=== PATIENT | female | born 1995 | race Caucasian/White ===

== ENCOUNTER → 2016-08-23 07:00 | Day surgery (SDC) | payer BC ==
[~2016-08-23 07:00] MED LIST: Buffered Lidocaine 1% SYRIN* 3 ML/SYR SYRINGE INTRADERM ONE; Bupivacaine 0.5% SDV PF* 30 ML VIAL ONE; Dexamethasone IV* 4 MG/ML 1 ML (4 MG) ONE; Famotidine IV* 10 MG/ML 2 ML (20 mg) IV ONE; Famotidine IV* 10 MG/ML 2 ML (20 mg) ONE; KETAMINE HCL* 50 MG/ML 10 ML VIAL ONE; Ketorolac INJ* 30 MG/ML 1 ML VIAL ONE; Lidocaine 2% PF* 10 ML AMP ONE; Lidocaine 2% PF* 5 ML VIAL ONE; Midazolam* 1 MG/ML 5 ML VIAL (5 MG) ONE; Morphine INJ* 2 MG/ML 1 ML SYRINGE IV PRN; Ondansetron INJ* 2 MG/ML VIAL ONE; PROCHLORPERAZINE INJ 5 MG/ML 2 ML VIAL IV PRN; Propofol* 10 MG/ML 20 ML BTL IV PUSH ONE; ceFAZolin 2 GM PREMIX(*) 2 GM/50 ML BAG IVPB ONE; fentaNYL* 50 MCG/ML 2 ML VIAL (100 MCG VIAL) IV PRN; fentaNYL* 50 MCG/ML 2 ML VIAL (100 MCG VIAL) ONE; oxyCODONE TAB* 5 MG TAB ONE; oxyCODONE/Acetamin 5/325 MG* TAB PO PRN
[2016-08-23 07:57] LABS: Manual Entry Verification DOM0004; UR Preg Internal Control QC Line Present
[2016-08-23 12:06] VITALS: BP 116/76
--- NOTE | 2016-08-23 15:38 | RAD ---
INDICATION: Removal of hardware, right ankle, T 84.84XA COMPARISONS: July 30, 2016 TECHNIQUE: Fluoroscopy was provided for a surgical procedure. Total fluoroscopy time is: 11 seconds FINDINGS: Spot images demonstrate removal of fixation hardware of the distal tibia. A small amount of residual is noted. IMPRESSION: FLUOROSCOPY WAS PROVIDED FOR A SURGICAL PROCEDURE CPT II Codes: 6045F
--- NOTE | 2016-08-24 09:24 | OP ---
OPERATIVE REPORT: DATE OF OPERATION: 08/23/16 DATE OF : 89 ATTENDING SURGEON: Lopez Humphries MD BIOFUELS MANAGER: No dental ceramist assistant noted. PRE-OP DIAGNOSIS: Painful hardware, right anterolateral ankle. POST-OP DIAGNOSIS: Painful hardware, right anterolateral ankle. OPERATIVE PROCEDURE: Removal of screw, right distal tibia. DESCRIPTION OF PROCEDURE: The patient was taken to the operating room, where a 3- cm incision was m marychuy over the anterolateral ankle. With the C-arm, we identified the end of the 4-0 cannulated screw . There were some bone overgrowth, so this was carefully removed with an osteotome. We then placed the screwdriver into the head of the screw and twisting it, we broke off the head of the 4-0 screw. I then used the screw removal kit and over-drilled the shaft of the 4-0 under C-arm guidance. At on e point, the cannulated overdrilling the screw bit, captured the shaft, but broke the shaft at the j unction with the threads and actually sheared off a portion of the end of the reverse cutting drill bit. C-arm was then used to verify that. All the screws removed except for the threaded portion an d a small piece broken off from the drill bit tip. I used the small curette up the canal to try to retrieve this broken piece of the drill, but was unable to. Nevertheless, the distal and lateral portion of the screw had been completely removed and should jm ve the problems experienced by the patient. We irrigated thoroughly closing with Vicryl and nylon s utures and a compression dressing applied. [id number]/[facility] #: [id number]
== END | disposition home or self-care (01) ==
LOC: OR 07:00
PROVIDERS: ATTEND Orthopaedic Surgery
DX: T84.84XA Pain due to internal orthopedic prosthetic devices, implants and grafts, initial encounter (principal); Y83.8 Other surgical procedures as the cause of abnormal reaction of the patient, or of later complication, without mention of misadventure at the time of the procedure
CPT/HCPCS: 76000; 81025; 88300; A9270-GY; J0690; J1100; J1885; J2001; J2250; J2405; J2704; J3010

== ENCOUNTER 2017-05-09 09:40 | Emergency (ER) | payer OTHER ==
[2017-05-09] MEDS ORDERED: Acetaminophen TAB* 325 MG PO ONE (12:53)
[2017-05-09] MEDS ORDERED: Clindamycin CAP* 150 MG PO ONE (13:44)
--- NOTE | 2017-05-09 14:04 | ED ---
Throat Pain/Nasal Congestion - HPI Summary HPI Summary: 24 week pt here w/ Rt lower cheek swelling which started last night. Has a wisdom tooth coming in here and saw dentist today (Woody Hull) - he believes it's infected and she admits she's tasted drainage. Denies fever, chills, dysphagia, N/V/D, SOMERS, neck stiffness. Has not tried anything yet for discomfort. She reports dentist told her to come here to ED for IV anbx and I& D. She has had movement prior and throughout facial swelling/infection. Denies ab/pelvic pain, vaginal d/c, back pain. - History of Current Complaint Chief Complaint: EDDentalPain Time Seen by Provider: 05/09/17 12:42 Hx Obtained From: Patient, Family/Type Bar And Segment Assembler - family - Allergies/Home Medications Allergies/Adverse Reactions: Allergies Allergy/AdvReac Type Severity Reaction Status Date / Time No Known Allergies Allergy Verified 05/09/17 10:14 Home Medications: Home Medications Vitamin [Calna] 1 tab PO DAILY 05/09/17 [History Confirmed 05/09/17] Ranitidine HCl [Zantac 75] 75 mg PO DAILY 05/09/17 [History Confirmed 05/09/17] PMH/Surg Hx/FS Hx/Imm Hx Previously Healthy: Yes Endocrine/Hematology History: Denies: Hx Anticoagulant Therapy GI History: Reports: Other GI Disorders - FREQUENT INDIGESTION, TAKES TUMS PRN Musculoskeletal History: Reports: Other Musculoskeletal History - FX GROWTH PLATE RIGHT ANKLE A CHILD Sensory History: Reports: Hx Contacts or Glasses - BOTH, WILL WEAR GLASSES DAY OF SURGERY Opthamlomology History: Reports: Hx Contacts or Glasses - BOTH, WILL WEAR GLASSES DAY OF SURGERY - Surgical History Surgery Procedure, Year, and Place: RIGHT ANKLE SURGERY - 2008 - [facility] – [place]. SKIN GRAFT ON RIGHT LEG A CHILD - [place] Hx Anesthesia Reactions: No Infectious Disease History: No Infectious Disease History: Denies: Traveled Outside the [place] in Last 30 Days - Family History Known Family History: Positive: None - Social History Lives: With Family Alcohol Use: None Hx Substance Use: No Substance Use Type: Reports: None Hx Tobacco Use: No Smoking Status (MU): Never Smoked Tobacco Review of Systems Constitutional: Negative Negative: Fever, Chills, Fatigue Eyes: Negative Negative: Drainage, Erythema Positive: Dental Pain. Negative: Sore Throat, Ear Ache, Nasal Discharge Cardiovascular: Negative Negative: Palpitations, Chest Pain Respiratory: Negative Negative: Shortness Of Breath, Cough Gastrointestinal: Negative Negative: Abdominal Pain, Vomiting, Diarrhea, Nausea Genitourinary: Negative Musculoskeletal: Negative Skin: Negative Neurological: Negative Negative: Headache, Weakness, Paresthesia, Numbness, Syncope Psychological: Normal All Other Systems Reviewed And Are Negative: Yes Physical Exam Triage Information Reviewed: Yes Vital Signs On Initial Exam: Initial Vitals Temp Pulse Resp BP Pulse Ox 98.3 F 97 20 127/71 99 05/09/17 10:11 05/09/17 10:11 05/09/17 10:11 05/09/17 10:11 05/09/17 10:11 Vital Signs Reviewed: Yes Appearance: Positive: Well-Appearing, No Pain Distress, Well-Nourished Skin: Positive: Warm, Dry - no erythema or lesions over Rt cheek - mild edema focal in lower Rt cheek Head/Face: Positive: Normal Head/Face Inspection - sinuses NTTP Eyes: Positive: Normal, EOMI, Conjunctiva Clear. Negative: Conjunctiva Inflammed, Discharge ENT: Positive: Normal ENT inspection, Hearing grossly normal, Pharynx normal, TMs normal, Uvula midline. Negative: Pharyngeal erythema, Nasal congestion, Nasal drainage Dental: Positive: Other - Rt inferior wisdom tooth appears to be erupting through tissue - no salvador drainage observed but gingiva is w/ mild erythema and buccal mucosa w/ mild edema - no focal bogginess within gingiva Neck: Positive: Supple, Nontender, No Lymphadenopathy Respiratory/Lung Sounds: Positive: Clear to Auscultation, Breath Sounds Present. Negative: Stridor, Tracheal Deviation, Wheezes Cardiovascular: Positive: Normal, RRR, S1, S2 Abdomen Description: Positive: Nontender, Soft Bowel Sounds: Positive: Present Musculoskeletal: Positive: Normal, Strength/ROM Intact Neurological: Positive: Normal, Sensory/Motor Intact, Alert, Oriented to Person Place, Time, CN Intact II-III Psychiatric: Positive: Normal - [place] Coma Scale Coma Scale Total: 15 Diagnostics - Vital Signs Vital Signs Temp Pulse Resp BP Pulse Ox 05/09/17 10:11 98.3 F 97 20 127/71 99 - Laboratory Lab Statement: Any lab studies that have been ordered have been reviewed, and results considered in the medical decision making process. EENT Course/Dx - Course Course Of Treatment: 24 week pt here w/ Rt lower dental abscess. Denies fever, chills, N/V/D, neck pain/stiffness or headache. D/t and early onset, it was decided an I&D would not be appropriate at this time as pt reports drainage and w/o focal area to open, may risk puhsing a focal infection into a systemic infection which she does not appear to have at this time. Pt was started on PO anbx, mouthwash anbx, and encouraged to try heat packs with acetaminophen for pain. Encouraged close f/u w/ dentist and reviewed danger s/ sx of when to return to ED. NOTE: HR 153 - WNL. - Diagnoses Provider Diagnoses: Dental infection Discharge - Discharge Plan Condition: Stable Disposition: HOME Prescriptions: Chlorhexidine MOUTHWASH 0.12%* [Peridex Mouth Wash 0.12%*] 15 ml .SEE ORDER BID #1 bottle Clindamycin HCl [Clindamycin 150 MG CAP*] 450 mg PO TID #30 cap Patient Education Materials: (ED), Dental Abscess (ED) Forms: *Work Release Referrals: Shaggy MICHAEL,Zackery Martinez [Primary Care Provider] - Additional Instructions: Rest and stay hydrated You may apply heat packs and use salt water rinses to help abscess to drain You may take acetaminophen 650mg every 6 hours for pain as well Rinse with chlorhexadine 2 x day for 10 days Complete clindamycin as directed Follow-up with dentist if worsens *If you develop fever, chills, nausea, vomiting, difficulty breathing or swallowing, headache or neck stiffness, return to ED
[2017-05-09 14:11] VITALS: BP 116/61
== END 2017-05-09 14:10 | disposition home or self-care (01) ==
LOC: ED 09:40
DX: K04.7 Periapical abscess without sinus (principal); K08.89 Other specified disorders of teeth and supporting structures
CPT/HCPCS: 99282; A9270-GY

== ENCOUNTER 2017-09-02 07:24 | Inpatient (IN) | payer OTHER ==
--- NOTE | 2017-09-02 08:19 | HP ---
General Information - General Information Maternal Age: 22 Grav: 1 Para: 0 SAB: 0 IEA: 0 Estimated Due Date: 08/28/17 Determined By: Early Ultrasound Maternal Blood Type and Rh: O Positive - Results this Serology/RPR Result: Non-Reactive Rubella Result: Immune HBsAg Result: Negative HIV Result: Negative GBS Culture Result: Negative Past Medical History Delivery History: See Records Pertinent Past Medical History: Non-Contributory Pertinent Family History: See Records - Antepartal Records Antepartal Records: Reviewed, Uncomplicated Review of Systems Constitutional: Comfortable Gastrointestinal: No Nausea/Vomiting Genitourinary: No Leaking Fluid Musculoskeletal: No Complaint Neurological: No Headache Movement: Normal Exam Allergies/Adverse Reactions: Allergies No Known Allergies Allergy (Verified 09/02/17 07:56) - Exam Abdomen: No Upper Quadrant Pain Breast: Breast Exam Deferred CVA: No CVA Tenderness Extremities: Edema Heart: Normal Rhythm/Heart Sounds HEENT: No Significant Findings Lungs: Clear Bilaterally Rectal: Rectal Exam Deferred Reflexes: DTR 2+ Thyroid: No Thyromegaly - Cervical Exam 2 cm/80%/-2 - Abdominal Exam Abdomen Exam: Non-Tender, Fundal Height Consistent with Dates EFM Findings - External Monitor Findings Baseline Heart Rate: 150 External Monitor Findings: Accelerations Present, Variability Moderate Contractions: None Assessment/Plan - Reason for Visit Reason for Visit: post term - Obstetrical Risk Factors Obstetrical Risk Factors: Post-Dates - Plan Plan: Induction
[2017-09-02] MEDS ORDERED: Oxytocin in LR* 20 UNITS/1,000 ML BAG IVPB ONE (08:29)
[2017-09-02] MEDS ORDERED: Oxytocin in LR* 20 UNITS/1,000 ML BAG IVPB SCH ×2 (09:00→23:00)
[2017-09-02 09:12] LABS: ABS Basophils 0 10^3/ul (0-0.2); ABS Eosinophils 0.1 10^3/ul (0-0.6); ABS Lymphocytes 1.6 10^3/ul (1.0-4.8); ABS Monocytes 0.7 10^3/ul (0-0.8); ABS Neutrophils 10.1 10^3/ul (1.5-7.7); ABS Nucleated RBC 0 10^3/ul; Eosinophil % 0.5 % (0-6); Hematocrit 35 % (35-47); Hemoglobin 11.6 g/dl (12.0-16.0); Lymphocyte % 12.9 % (25-47); Mean Corpuscular HGB Conc 33 g/dl (31-36); Mean Corpuscular Hemoglobin 28 pg (27-31); Mean Corpuscular Volume 84 fL (80-97); Mean Platelet Volume 8.8 um3 (7.4-10.4); Nucleated Red Blood Cells % 0; Platelet Count 292 10^3/ul (150-450); Red Blood Count 4.22 10^6/ul (4.0-5.4); Red Cell Distribution Width 15 % (10.5-15); White Blood Count 12.4 10^3/ul (3.5-10.8)
[2017-09-02] MEDS ORDERED: OBEPIDURAL* 250 ML EPIDURAL ONE (18:04)
[2017-09-02] MEDS ORDERED: EPHEDrine (Pressors)* 50 MG/ML VIAL IV PUSH PRN ×2 (18:57)
[2017-09-02] MEDS ORDERED: Famotidine TAB* 20 MG PO PRN (18:57)
[2017-09-02] MEDS ORDERED: Sodium Citrate/Citric Acid* 15 ML UDC PO PRN (18:57)
[2017-09-02] MEDS ORDERED: Phenylephrine IV* 40 MCG/ML 10 ML SYRINGE IV PUSH PRN ×2 (18:57)
[2017-09-02] MEDS ORDERED: OBEPIDURAL* 250 ML EPIDURAL SCH (19:00)
[2017-09-02] MEDS ORDERED: Sodium Citrate/Citric Acid* 15 ML UDC PO ONE (21:06)
[2017-09-02] MEDS ORDERED: ceFOXitin 2 GM IVPREMIX* 2 GM/50 ML BAG IVPB ONE (21:06)
[2017-09-02] MEDS ORDERED: Morphine PF AMP (0.5MG/ML)* 5 MG/10 ML AMP ONE (21:35)
[2017-09-02] MEDS ORDERED: OXYTOCIN* 10 UNITS/ML 1 ML VIAL ONE (22:10)
[2017-09-02] MEDS ORDERED: Witch Hazel PAD* JAR TOPICAL PRN (22:48)
[2017-09-02] MEDS ORDERED: Dibucaine 1% 28.35 GM TUBE PR PRN (22:48)
[2017-09-02] MEDS ORDERED: Glycerin ADULT SUPP PR PRN (22:48)
[2017-09-02] MEDS ORDERED: Acetaminophen TAB* 325 MG PO PRN (22:48)
[2017-09-02] MEDS ORDERED: Naloxone* 0.4 MG/ML 1 ML VIAL IV PRN ×2 (22:50)
[2017-09-02] MEDS ORDERED: Nalbuphine* 20 MG/ML 1 ML VIAL IV PRN ×2 (22:50)
[2017-09-02] MEDS ORDERED: HYDROmorphone INJ* 1 MG/ML CARPUJECT SYRINGE IV PRN (22:50)
[2017-09-02] MEDS ORDERED: oxyCODONE/Acetamin 5/325 MG* TAB PO PRN ×2 (22:50)
[2017-09-02] MEDS ORDERED: Ondansetron INJ* 2 MG/ML VIAL IV PRN (22:50)
[2017-09-02] MEDS ORDERED: fentaNYL* 50 MCG/ML 2 ML VIAL (100 MCG VIAL) IV PRN (22:50)
[2017-09-02] MEDS ORDERED: Ketorolac INJ* 30 MG/ML 1 ML VIAL IV PRN (22:50)
[2017-09-02] MEDS ORDERED: Ketorolac INJ* 30 MG/ML 1 ML VIAL ONE (23:47)
--- NOTE | 2017-09-03 03:48 | OP ---
OPERATIVE REPORT: DATE OF OPERATION: 09/02/17 DATE OF : 89 SURGEON: Mathieu Brooke MD BEREAVEMENT COUNSELOR: Mikaela Smallwood CNM ANESTHESIA: Epidural. PRE-OP DIAGNOSIS: Arrest of dilation. POST-OP DIAGNOSIS: Arrest of dilation. OPERATIVE PROCEDURE: Low transverse section. ESTIMATED BLOOD LOSS: 600 cc. FINDINGS: This is a 22-year-old 1, para 0, who presented at 41 weeks for induction of labor for post dates. She was initially started at approximately 7:30 a.m. with artificial rupture of memb ranes and Pitocin. She progressed from 2 cm up to 4 cm by 4 p.m. Received an epidural at approximat ayla 6 p.m. Did not progress beyond 4 cm by 9 p.m. At that time, risks, benefits, alternatives, mauro cations of section were discussed with the patient and the patient agreed. At the time of julio lopez, she had a viable male, Apgars 8 and 9, weight was 8 pounds and 9 ounces. Normal-appearing u terus, fallopian tubes, and ovaries. DESCRIPTION OF PROCEDURE: The patient identified, procedure identified as a low transverse section. The patient was taken to the operating room and prepped and draped in the usual fashion in the left lateral recumbent position under epidural anesthesia. A Pfannenstiel incision was made in t he abdomen and carried down through fat, fascia, and peritoneum. The Prasad retractor was placed. A transverse incision was made in the lower uterine segment and extended laterally using a bandage scis sors. The above was delivered through the incision with ease. There was nuchal cord x1, whic h was looped off. The rest of the infant was delivered. The cord was doubly clamped and cut and the was handed to the awaiting professor of special education. Cord blood was obtained. Placenta delivered sponta neously. The uterine incision was closed using 0 Polysorb in a running fashion. A second layer was u sed to imbricate the first layer. Good hemostasis was verified in the intraperitoneal cavity. The p eritoneum was then closed using 3-0 Polysorb in a running fashion. Good hemostasis achieved in the s ubrectus layers. The fascia was closed using 0 Polysorb in a running fashion. Hemostasis achieved i n the subcu. Copious irrigation was utilized and suctioned out. The deep space in the subcu was clos ed using 3-0 Vicryl in a simple fashion and the skin was closed with 4-0 Monocryl in a subcuticular f ashion. Mastisol and Steris were applied. All sponge and instrument counts were correct. The patie nt returned to the recovery room in stable condition. [id number]/[facility] #: [id number]
[2017-09-03 06:11] LABS: ABS Basophils 0.1 10^3/ul (0-0.2); ABS Eosinophils 0.1 10^3/ul (0-0.6); ABS Lymphocytes 1.8 10^3/ul (1.0-4.8); ABS Monocytes 1.1 10^3/ul (0-0.8); ABS Neutrophils 11.2 10^3/ul (1.5-7.7); ABS Nucleated RBC 0 10^3/ul; Eosinophil % 0.4 % (0-6); Hematocrit 31 % (35-47); Hemoglobin 10.2 g/dl (12.0-16.0); Lymphocyte % 12.4 % (25-47); Mean Corpuscular HGB Conc 34 g/dl (31-36); Mean Corpuscular Hemoglobin 28 pg (27-31); Mean Corpuscular Volume 85 fL (80-97); Mean Platelet Volume 8.7 um3 (7.4-10.4); Nucleated Red Blood Cells % 0; Platelet Count 233 10^3/ul (150-450); Red Blood Count 3.62 10^6/ul (4.0-5.4); Red Cell Distribution Width 15 % (10.5-15); White Blood Count 14.2 10^3/ul (3.5-10.8)
[2017-09-03] MEDS: Docusate CAP* 100 MG PO SCH ×3 (08:29→21:20)
[2017-09-03] MEDS: Simethicone TAB* 80 MG TAB.CHEW PO SCH ×4 (08:29→21:20)
[2017-09-03] MEDS ORDERED: Ferrous Gluconate TAB* 324 MG TAB PO SCH (09:00)
[2017-09-03] MEDS: Ibuprofen TAB* 600 MG PO PRN ×2 (13:48→21:20)
[2017-09-03] MEDS ORDERED: oxyCODONE/Acetamin 5/325 MG* TAB PO PRN ×2 (14:42)
[2017-09-03] MEDS ORDERED: Zolpidem TAB* 5 MG PO PRN (21:40)
[2017-09-04] MEDS: Ibuprofen TAB* 600 MG PO PRN ×3 (08:02→20:03)
[2017-09-04] MEDS: Docusate CAP* 100 MG PO SCH ×3 (08:56→20:03)
[2017-09-04] MEDS: Simethicone TAB* 80 MG TAB.CHEW PO SCH ×4 (08:57→20:04)
[2017-09-05] MEDS: Ibuprofen TAB* 600 MG PO PRN ×2 (04:07→11:07)
[2017-09-05 07:41] VITALS: BP 135/64
[2017-09-05] MEDS: Docusate CAP* 100 MG PO SCH (08:42)
[2017-09-05] MEDS: Simethicone TAB* 80 MG TAB.CHEW PO SCH (08:42)
== END 2017-09-05 11:52 | disposition home or self-care (01) | DRG 540 ==
LOC: MCHOBOUT 07:24 → MCHOB 08:08
PROVIDERS: ADMIT Obstetrics & Gynecology; ATTEND Obstetrics & Gynecology
PROC: 3E033VJ Introduction of Other Hormone into Peripheral Vein, Percutaneous Approach (ICD-10-PCS; 2017-09-02)
PROC: 10907ZC Drainage of Amniotic Fluid, Therapeutic from Products of Conception, Via Natural or Artificial Opening (ICD-10-PCS; 2017-09-02)
PROC: 10D00Z1 Extraction of Products of Conception, Low, Open Approach (ICD-10-PCS; principal; 2017-09-02 21:44)
DX: O62.0 Primary inadequate contractions (principal); O48.0 Post-term pregnancy; O69.81X0 Labor and delivery complicated by cord around neck, without compression, not applicable or unspecified; Z3A.41 41 weeks gestation of pregnancy; Z37.0 Single live birth
CPT/HCPCS: 36415; 85025; 86850; 86900; 86901; A9270-GY; J0694; J1885; J2300; J2590

== ENCOUNTER 2018-02-14 19:23 | Emergency (ER) | payer OTHER ==
--- NOTE | 2018-02-14 21:03 | ED ---
GI/ HPI - HPI Summary HPI Summary: 22 year old female lmp december 19 presents with abdominal pain only when she is walking. She states that it located on both sides of her lower abdominal. is it ache in nature. She denies any nausea or vomiting. No urinary symptoms. No flank pain. No diarrhea nor constipation or abnormal vaginal discharge. No vaginal bleeding. She states never had this before. States she has no pain at baseline is only when she walks. She has not followed up with her OB yet. She states that she only had an at home test that was positive. - History of Current Complaint Chief Complaint: EDOBProblems Time Seen by Provider: 02/14/18 20:46 Stated Complaint: 8 WKS PREG/ABD PAIN Pain Intensity: 0 - Allergy/Home Medications Allergies/Adverse Reactions: Allergies Allergy/AdvReac Type Severity Reaction Status Date / Time No Known Allergies Allergy Verified 02/14/18 19:30 Home Medications: Home Medications Levocetirizine Dihydrochloride [Xyzal Allergy 24Hr] 5 mg PO BID 02/14/18 [ History Confirmed 02/14/18] PMH/Surg Hx/FS Hx/Imm Hx Endocrine/Hematology History: Denies: Hx Anticoagulant Therapy Respiratory History: Denies: Hx Asthma GI History: Reports: Other GI Disorders - FREQUENT INDIGESTION, TAKES TUMS PRN Musculoskeletal History: Reports: Other Musculoskeletal History - FX GROWTH PLATE RIGHT ANKLE A CHILD Sensory History: Reports: Hx Contacts or Glasses - BOTH, WILL WEAR GLASSES DAY OF SURGERY Opthamlomology History: Reports: Hx Contacts or Glasses - BOTH, WILL WEAR GLASSES DAY OF SURGERY - Surgical History Surgery Procedure, Year, and Place: RIGHT ANKLE SURGERY - 2008 - [facility] – [place]. SKIN GRAFT ON RIGHT LEG A CHILD - [place] Hx Anesthesia Reactions: No Infectious Disease History: No Infectious Disease History: Denies: Traveled Outside the US in Last 30 Days - Family History Known Family History: Positive: None - Social History Alcohol Use: None Hx Substance Use: No Substance Use Type: Reports: None Hx Tobacco Use: No Smoking Status (MU): Never Smoked Tobacco Have You Smoked in the Last Year: No Review of Systems Negative: Fever Negative: Chest Pain Negative: Shortness Of Breath Positive: Abdominal Pain All Other Systems Reviewed And Are Negative: Yes Physical Exam Triage Information Reviewed: Yes Vital Signs On Initial Exam: Initial Vitals Temp Pulse Resp BP Pulse Ox 98.3 F 92 15 134/68 100 02/14/18 19:27 02/14/18 19:27 02/14/18 19:27 02/14/18 19:27 02/14/18 19:27 Vital Signs Reviewed: Yes Appearance: Positive: Well-Appearing Skin: Positive: Warm, Dry Head/Face: Positive: Normal Head/Face Inspection Eyes: Positive: Normal, Conjunctiva Clear ENT: Positive: Pharynx normal Respiratory/Lung Sounds: Positive: Clear to Auscultation, Breath Sounds Present Cardiovascular: Positive: Normal, RRR Abdomen Description: Positive: Nontender, Soft Bowel Sounds: Positive: Present Musculoskeletal: Positive: Normal Neurological: Positive: Normal Psychiatric: Positive: Normal Diagnostics - Vital Signs Vital Signs Temp Pulse Resp BP Pulse Ox 02/14/18 19:27 98.3 F 92 15 134/68 100 - Laboratory Lab Statement: Any lab studies that have been ordered have been reviewed, and results considered in the medical decision making process. GIGU Course/Dx - Course Course Of Treatment: 18-year-old female presents with head injury today. She states that she fell off a high bar doing gymnastics. She fell and landed on her head. She denies any loss consciousness. She admits to amnesia after the event. States that after the fall today she is having difficulty recalling events of the day. She admits to photophobia. She admits to dizziness. She admits to nausea but no vomiting. She denies any neck pain. She denies any other injury. She states she has a pretty severe headache. She has a history of a concussion a year ago. She denies any history of migraines. On exam nontender abdomen. hcg [id number]. discussed that should follow up with ob as scheduled. likely round ligament pain. told if develops persistent abd pain or vaginal bleeding to return. patient understand and agrees with plan. - Diagnoses Differential Diagnoses - Female: , STD, Urinary Tract Infection Provider Diagnoses: Discharge - Sign-Out/Discharge Documenting (check all that apply): Patient Departure - Discharge Plan Condition: Good Disposition: HOME Patient Education Materials: (ED) Referrals: Shaggy MICHAEL,Zackery Martinez [Primary Care Provider] - Anayeli Bar MD [Medical Doctor] - Additional Instructions: follow up with ob Take tyenlol every 6 hours as needed for pain Return to ED if develop any new or worsening symptoms - Billing Disposition and Condition Condition: GOOD Disposition: Home
[2018-02-14 21:48] LABS: Urine Appearance Clear; Urine Blood Negative (Negative); Urine Color Yellow; Urine Ketones Negative (Negative); Urine Protein Negative (Negative); Urine Red Blood Cell Trace(0-2/hpf) (Absent); Urine Specific Gravity 1.012 (1.010-1.030); Urine Urobilinogen Negative (Negative); Urine White Blood Cell Trace(0-5/hpf) (Absent)
[2018-02-14 22:22] VITALS: BP 132/62
== END 2018-02-14 22:21 | disposition home or self-care (01) ==
LOC: ED 19:23
DX: R10.9 Unspecified abdominal pain (principal); Z34.91 Encounter for supervision of normal pregnancy, unspecified, first trimester; Z3A.08 8 weeks gestation of pregnancy
CPT/HCPCS: 36415; 81003; 81015; 84702; 87086; 87491; 87591; 99282

== ENCOUNTER 2018-10-02 09:06 | Inpatient (IN) | payer OTHER, MEDICAID ==
[~2018-10-02 09:06] MED LIST changes: +Buffered Lidocaine 1% SYRIN* 1 ML/SYRINGE INTRADERM ONE; -Buffered Lidocaine 1% SYRIN* 3 ML/SYR SYRINGE INTRADERM ONE; -Bupivacaine 0.5% SDV PF* 30 ML VIAL ONE; -Dexamethasone IV* 4 MG/ML 1 ML (4 MG) ONE; -Famotidine IV* 10 MG/ML 2 ML (20 mg) IV ONE; -Famotidine IV* 10 MG/ML 2 ML (20 mg) ONE; -KETAMINE HCL* 50 MG/ML 10 ML VIAL ONE; -Ketorolac INJ* 30 MG/ML 1 ML VIAL ONE; +Lactated Ringers 1000 ML Bag* 1,000 ML IV SCH; -Lidocaine 2% PF* 10 ML AMP ONE; -Lidocaine 2% PF* 5 ML VIAL ONE; -Midazolam* 1 MG/ML 5 ML VIAL (5 MG) ONE; -Morphine INJ* 2 MG/ML 1 ML SYRINGE IV PRN; -Ondansetron INJ* 2 MG/ML VIAL ONE; -PROCHLORPERAZINE INJ 5 MG/ML 2 ML VIAL IV PRN; -Propofol* 10 MG/ML 20 ML BTL IV PUSH ONE; +Sodium Citrate/Citric Acid* 15 ML UDC PO ONE; -ceFAZolin 2 GM PREMIX(*) 2 GM/50 ML BAG IVPB ONE; -fentaNYL* 50 MCG/ML 2 ML VIAL (100 MCG VIAL) IV PRN; -fentaNYL* 50 MCG/ML 2 ML VIAL (100 MCG VIAL) ONE; -oxyCODONE TAB* 5 MG TAB ONE
[2018-10-02] MEDS ORDERED: ceFOXitin 2 GM IVPREMIX* 2 GM/50 ML BAG ONE (10:22)
[2018-10-02] MEDS ORDERED: Morphine PF AMP (0.5MG/ML)* 5 MG/10 ML AMP ONE (11:10)
[2018-10-02] MEDS ORDERED: Dexamethasone IV* 4 MG/ML 1 ML (4 MG) ONE (11:11)
[2018-10-02] MEDS ORDERED: EPHEDrine (Pressors)* 50 MG/ML VIAL ONE (11:11)
[2018-10-02] MEDS ORDERED: OXYTOCIN* 10 UNITS/ML 1 ML VIAL ONE (11:11)
[2018-10-02] MEDS ORDERED: Ondansetron INJ* 2 MG/ML VIAL ONE (11:11)
[2018-10-02] MEDS ORDERED: Phenylephrine 40 MCG/ML SYRINGE ONE (11:49)
[2018-10-02] MEDS ORDERED: oxyCODONE TAB* 5 MG TAB PO PRN ×2 (12:02→16:00)
[2018-10-02] MEDS ORDERED: PROCHLORPERAZINE INJ 5 MG/ML 2 ML VIAL IV PRN (12:02)
[2018-10-02] MEDS ORDERED: Naloxone* 0.4 MG/ML 1 ML VIAL IV PRN ×2 (12:02→12:04)
[2018-10-02] MEDS ORDERED: Ketorolac INJ* 30 MG/ML 1 ML VIAL IV PRN (12:02)
[2018-10-02] MEDS ORDERED: fentaNYL* 50 MCG/ML 2 ML VIAL (100 MCG VIAL) IV PRN (12:02)
[2018-10-02] MEDS ORDERED: diPHENhydraMINE IV* 50 MG/ML 1 ml VIAL (BENADRYL) IV PRN (12:02)
[2018-10-02] MEDS ORDERED: Acetaminophen IV 1GM/100ML * 1,000 MG/100 ML VIAL IVPB ONE (12:02)
[2018-10-02] MEDS ORDERED: Ondansetron INJ* 2 MG/ML VIAL IV PRN (12:04)
[2018-10-02] MEDS ORDERED: Scopolamine 1.5 mg* PATCH TRANSDERM PRN (12:04)
[2018-10-02] MEDS ORDERED: Nalbuphine* 10 MG/ML 1 ML VIAL IV PRN (12:04)
[2018-10-02] MEDS ORDERED: DiMENhydriNATE IV* 50 MG/ML VIAL IV PUSH PRN (12:04)
[2018-10-02] MEDS ORDERED: Glycerin ADULT SUPP PR PRN (12:47)
[2018-10-02] MEDS ORDERED: Witch Hazel PAD* JAR TOPICAL PRN (12:47)
[2018-10-02] MEDS ORDERED: Dibucaine 1% 28.35 GM TUBE PR PRN (12:47)
[2018-10-02] MEDS ORDERED: Oxytocin in LR* 20 UNITS/1,000 ML BAG IVPB SCH (13:00)
[2018-10-02] MEDS ORDERED: Lactated Ringers 1000 ML Bag* 1,000 ML IV SCH (13:00)
[2018-10-02] MEDS ORDERED: Ketorolac INJ* 30 MG/ML 1 ML VIAL IV SCH (13:00)
[2018-10-02] MEDS: Docusate CAP* 100 MG PO SCH ×2 (14:22→21:14)
[2018-10-02] MEDS: Simethicone TAB* 80 MG TAB.CHEW PO SCH ×2 (18:35→21:14)
[2018-10-02] MEDS: Ketorolac INJ* 30 MG/ML 1 ML VIAL IV SCH (21:13)
[2018-10-02] MEDS: Acetaminophen TAB* 325 MG PO SCH (21:14)
[2018-10-03] MEDS ORDERED: oxyCODONE/Acetamin 5/325 MG* TAB PO PRN (03:35)
[2018-10-03] MEDS ORDERED: Acetaminophen TAB* 325 MG PO PRN (03:35)
[2018-10-03] MEDS: Ketorolac INJ* 30 MG/ML 1 ML VIAL IV SCH (04:48)
[2018-10-03] MEDS: Acetaminophen TAB* 325 MG PO SCH ×2 (04:49→13:40)
[2018-10-03 07:09] LABS: ABS Basophils 0.1 10^3/ul (0-0.2); ABS Eosinophils 0.1 10^3/ul (0-0.6); ABS Lymphocytes 1.7 10^3/ul (1.0-4.8); ABS Neutrophils 8.8 10^3/ul (1.5-7.7); Eosinophil % 0.6 %; Hematocrit 26 % (35-47); Hemoglobin 8.2 g/dL (12.0-16.0); Lymphocyte % 14.8 %; Mean Corpuscular HGB Conc 32 g/dL (31-36); Mean Corpuscular Hemoglobin 25 pg (27-31); Mean Corpuscular Volume 76 fL (80-97); Mean Platelet Volume 8.5 fL (7.4-10.4); Platelet Count 214 10^3/uL (150-450); Red Blood Count 3.34 10^6 /uL (3.70-4.87); Red Cell Distribution Width 16 % (10.5-15); White Blood Count 11.7 10^3/uL (3.5-10.8)
[2018-10-03] MEDS: Docusate CAP* 100 MG PO SCH ×3 (09:09→20:37)
[2018-10-03] MEDS: Simethicone TAB* 80 MG TAB.CHEW PO SCH ×4 (09:09→20:38)
[2018-10-03] MEDS: Ibuprofen TAB* 600 MG PO PRN ×2 (10:48→18:08)
[2018-10-03] MEDS ORDERED: ceFOXitin 2 GM IVPREMIX* 2 GM/50 ML BAG IVPB ONE (10:53)
[2018-10-03] MEDS: Ferrous Gluconate TAB* 324 MG TAB PO SCH ×2 (11:08→20:38)
--- NOTE | 2018-10-03 11:28 | OP ---
DATE OF OPERATION: 10/02/18 - ROOM #117 DATE OF : 89 SURGEON: Wendie Langston MD TRAIN STARTER: Tara Espinoza CNM SECOND ASSIST: Anayeli Bar MD ANESTHESIOLOGIST: Dr. Quinones. ANESTHESIA: Spinal. PRE-OP DIAGNOSIS: Intrauterine 39 weeks. Desires repeat section. POST-OP DIAGNOSIS: Intrauterine 39 weeks. Desires repeat section. Delivered. OPERATIVE PROCEDURE: Repeat low-transverse section. ESTIMATED BLOOD LOSS: 500 cc. URINE OUTPUT: 50 cc of clear yellow urine. FLUIDS: 2500 cc of crystalloid. Findings revealed a vertex male infant, Apgars 9 at 1 minute and 9 at 5 minutes. Nuchal cord x1. No meconium. Weight was 8 pounds 5 ounces. Normal-appearing placenta. Three-vessel cord manually extracted and intact. Normal-appearing tubes and ovaries bilaterally. Normal uterine cavity without evidence of retained placenta or membranes. COMPLICATIONS: None apparent. DISPOSITION: Stable to recovery room. DESCRIPTION OF PROCEDURE: The patient was placed in dorsal lithotomy position. The abdomen was prepped and draped in a sterile standard fashion. The patient was identified with universal protocol. After testing for appropriate anesthesia, an incision was made to her prior incision. This was carried down through the fascia. The fascia was scored in the midline. Extended laterally and superiorly using Jean scissors, from the rectus muscle superiorly and inferiorly with blunt and sharp dissection. The peritoneum was then entered bluntly. The peritoneal incision was extended bluntly. Bladder blade was inserted. The lower uterine segment was identified. An Allis was used to tent up on the lower uterine segment. Incision was made with scalpel. This was carried down to membranes. Amniotomy was created for clear fluid. The incision was extended laterally and superiorly using bandage scissors. The infant was delivered direct occiput anterior. Nuchal cord was identified, reduced around the head, anterior and then posterior shoulder delivered. Baby was vigorous and crying in the operative field. Cord was allowed to pulse for 60 seconds and then clamped and cut and the baby was handed off to the awaiting assault amphibious vehicle officer. Appropriate cord blood was obtained. Placenta was then manually extracted. Uterus was exteriorized, wrapped in warm, moist laparotomy sponge and the uterine cavity was explored and noted to be free of any membranes or placental tissue. The uterine incision itself was reapproximated using 0 Vicryl in a running locked fashion. Second layer of running imbricated for hemostasis. The tubes and ovaries were noted to have a normal appearance. The uterus was returned intraabdominally. Colic gutters were lavaged. Hysterotomy site was noted to be hemostatic. The peritoneum was then reapproximated using 3-0 Vicryl in a running fashion. The subfascial area was visualized and noted to be hemostatic and the fascia itself was reapproximated using 0 Vicryl x2 in a running fashion. Subcu was lavaged, hemostasis assured. A fat stitch was placed using 3-0 Vicryl in an interrupted fashion and the skin was then reapproximated with 4-0 Monocryl. Mastisol and Steris were applied. All sponge, instrument, and blade counts were correct throughout the case. The patient tolerated the procedure well. Went to recovery room in stable condition. [id number]/[facility] #: [id number] [facility]
[2018-10-04] MEDS: Ibuprofen TAB* 600 MG PO PRN ×2 (00:57→08:57)
[2018-10-04 08:45] VITALS: BP 107/72
[2018-10-04] MEDS: Ferrous Gluconate TAB* 324 MG TAB PO SCH (08:56)
[2018-10-04] MEDS: Docusate CAP* 100 MG PO SCH (08:56)
[2018-10-04] MEDS: Simethicone TAB* 80 MG TAB.CHEW PO SCH (08:58)
[2018-10-05] MEDS ORDERED: Scopolamine PATCH Remove* 1 NOTE MISC PATCH OFF PRN (12:06)
== END 2018-10-04 12:32 | disposition home or self-care (01) | DRG 540 ==
LOC: MCHOB 09:06
PROVIDERS: ADMIT Obstetrics & Gynecology; ATTEND Obstetrics & Gynecology
PROC: 4A1HXCZ Monitoring of Products of Conception, Cardiac Rate, External Approach (ICD-10-PCS; 2018-10-02)
PROC: 10D00Z1 Extraction of Products of Conception, Low, Open Approach (ICD-10-PCS; principal; 2018-10-02 11:00)
DX: O34.211 Maternal care for low transverse scar from previous cesarean delivery (principal); O69.81X0 Labor and delivery complicated by cord around neck, without compression, not applicable or unspecified; O99.214 Obesity complicating childbirth; Z3A.39 39 weeks gestation of pregnancy; Z37.0 Single live birth; O90.81 Anemia of the puerperium
CPT/HCPCS: 36415; 85025; A9270-GY; J0694; J1100; J1200; J1885; J2405; J2590